=== PATIENT | female | born 1965 | race Caucasian/White ===

== ENCOUNTER 2019-11-20 16:32 | Emergency (ER) | payer OTHER | END 2019-11-20 17:22 | disposition home or self-care (01) | LOC: EDH 16:32 | DX: T63.441A Toxic effect of venom of bees, accidental (unintentional), initial encounter (principal); Z98.51 Tubal ligation status; Z98.890 Other specified postprocedural states; Z72.0 Tobacco use; Y92.89 Other specified places as the place of occurrence of the external cause ==